=== PATIENT | male | born 2000 | race Caucasian/White ===

== ENCOUNTER 2025-07-28 13:06 | Emergency (ER) | payer OTHER ==
[~2025-07-28] VITALS: Ht 177.8 cm; Wt 82.0 kg
[2025-07-28 13:08] VITALS: O2SAT 100
[2025-07-28 13:57] VITALS: TEMP 37.1
[2025-07-28 14:15] LABS: BASOPHILS % 1.3 % (0.0-2.0); EOSINOPHILS % 9.5 % (0.0-5.0); HEMATOCRIT. 44.1 % (42.0-52.0); HEMOGLOBIN. 14.7 g/dL (14.0-18.0); LYMPHOCYTES % 35.0 % (20.0-50.0); MEAN PLATELET VOLUME 7.0 fl (7.4-10.4); MONOCYTES % 5.6 % (2.0-8.0); NEUTROPHILS % 48.6 % (40.0-76.0); PLATELET 284 x1000/uL (130-400); RED BLOOD CELL COUNT 4.96 mill/uL (4.7-6.1); RED CELL DISTRIBUTION WIDTH 13.4 % (11.6-14.6)
[2025-07-28 14:35] LABS: CREATININE 1.1 mg/dL (0.6-1.3); UREA NITROGEN BLOOD 17 mg/dL (9-23)
[2025-07-28 14:42] LABS: ETHANOL BLOOD < 10 mg/dL (<10)
[2025-07-28] MEDS: SODIUM CHLORIDE 0.9% 1,000 ML IV ONE (14:59)
[2025-07-28 15:28] VITALS: BP 131/77; PULSE 87; RESP 14; O2SAT 100
== END 2025-07-28 15:42 | disposition home or self-care (01) ==
LOC: ER 13:31
DX: R56.9 Unspecified convulsions (principal); J45.909 Unspecified asthma, uncomplicated
CPT/HCPCS: 80048; 80320; 85025; 36415; 70450; 93005; 96360; 99284; J7030; A4606; G0480